=== PATIENT | female | born 1970 | race Caucasian/White ===

== ENCOUNTER 2020-09-30 14:25 | Emergency (ER) | payer MEDICARE, MEDICAID, SELFPAY ==
[2020-09-30 14:27] VITALS: BP 125/89; PULSE 87; RESP 16; TEMP 36.6; O2SAT 96; BMI 21.0
--- NOTE | 2020-09-30 14:41 | CT_ITS ---
STUDY: CT ABDOMEN AND PELVIS WITH CONTRAST REASON FOR EXAM: Female, 49 years old. Abdominal pain -- IV PO Contrast RADIATION DOSAGE (If Supplied By Facility): CTDIvol = ( 9.95 ) mGy, DLP = ( 305.65 ) mGycm TECHNIQUE: Transaxial images were obtained from the dome of the diaphragm to the symphysis pubis with oral contrast. Oral and amp; IV Gastrografin and amp; 100mL Isovue-370 was administered. Sagittal and coronal images were reconstructed. Individualized dose optimization techniques were used for this CT. COMPARISON: Prior abdomen and pelvic CT exam of 11/11/2013 FINDINGS: Dependent bibasilar atelectatic changes, left greater than right. The visualized portions of the heart are within normal limits. Normal liver. There are surgical clips in the gallbladder fossa consistent with a prior cholecystectomy. Normal spleen. Multifocal pancreatic calcifications. Stable mildly dilated pancreatic duct in the head and body. Mild compensatory dilatation of the common bile duct. Ductal findings are stable from prior exam. Pancreatic calcifications have occurred since the previous exam. Normal bilateral adrenal glands. No acute renal findings or changes. Stable small renal cysts. Currently negative for hydronephrosis, renal or ureteral stones. Normal visualized stomach. Mild diffuse proximal small bowel dilatation. Oral contrast is only progressed to proximal small bowel at the time of this exam. Negative for evidence of a high-grade obstruction. Unremarkable ileocolic anastomosis. The remaining colon is unremarkable. There is non-visualization of the appendix. There is diffuse atherosclerotic calcification of the abdominal aorta, without a demonstrated aneurysm. Normal inferior vena cava. Normal retroperitoneum. Distended urinary bladder. Negative for pelvic mass or free fluid of the pelvis. There is a small fatty hernia of the midline anterior abdominal wall occurring 8 cm below the xiphoid with some opacity of the fat external and internal to the abdominal wall that is not changed from prior exam. Normal osseous structures. CT/Abdomen/Pelvis WITH Contrast IMPRESSION: Mildly distended or hypotonic small bowel without evidence of high-grade obstruction. Unremarkable ileocolic anastomosis and remaining distal colon. Negative for evidence of obstruction perforation or other inflammatory bowel changes. No acute renal findings or changes. Negative for hydronephrosis, renal or ureteral stones. Negative for pelvic mass. Distended urinary bladder. Unremarkable liver and spleen status post cholecystectomy. Moderate dilatation of the common bile duct stable from prior exam. Normal size of the pancreas. Prominent pancreatic duct of the pancreatic head and body which is a stable finding from prior exam; however, diffuse globular pancreatic calcifications have occurred since the prior exam of 2013. Small hernia of the midline anterior abdominal wall occurring 8 cm above the xiphoid with chronic fat changes. Findings stable from prior exam. Electronically Signed: Jayne Juan MD at 18:07 EDT , Service support ,
--- NOTE | 2020-09-30 14:43 | ED.DCSUM_ITS ---
- ER Visit Summary Date of Service: 09/30/20 Chief Complaint: Abdominal pain, nausea, vomiting, diarrhea History of Present Illness: The patient is a 49 F who presents with abdominal pain that has been getting progressively worse over the past 2 weeks. Patient states she is also been having some nausea, vomiting, and diarrhea for the past 2 weeks. Patient denies any melena or hematochezia. Patient denies any hematemesis or coffee-ground emesis. Patient states she is unable to keep anything down. Patient states that she has been taking her medication with crackers. Patient thinks that they are staying down. Patient denies any dysuria or hematuria. Patient has a history of Crohn's. Patient is on Imuran for that. Patient states that her primary care physician referred to the emergency department for possible pancreatitis due to the Imuran. Physical Examination: Vital signs are stable. Patient is afebrile. Patient is in no acute distress. Oral mucosa is pink and moist. Neck is supple. Trachea is midline. There is no JVD. Heart was regular rate and rhythm. Lungs are clear and equal bilaterally. Abdomen is soft. Bowel sounds are normal. There is epigastric and left upper quadrant tenderness. There is no rebound or guarding noted. Extremities are intact. There is no calf tenderness or edema. Cranial nerves II through XII are intact. There are no focal motor or sensory deficits noted. Test Results: CBC and comprehensive metabolic profile were obtained and were essentially within normal limits. Lipase was normal. Urinalysis was obtained. There is no evidence of urinary tract infection. CT scan of the abdomen and pel vis was obtained. There is no evidence of bowel obstruction or perforation. There are no acute changes noted. There is no acute intra abdominal process. This was interpreted by the radiologist and reviewed by myself. Emergency Department Course and Treatment: Patient was given IV fluids, Dilaudid, and Zofran here. Patient is feeling better on reevaluation. Patient was instructed to follow-up with her primary care physician in 5 to 7 days. Patient understood and was agreeable with the plan. All questions were answered. Disposition: Discharge home Impression: 1. Abdominal pain This note was generated with [employer] software. It may contain incorrect words, spelling, and punctuation that were not noted in review of the chart prior to signing ED Disposition - Plan for ED Patient: Disposition: Home or Assisted Living Diagnosis: Abdominal pain Instructions: ED Abdominal Pain Unkn Cause Fem Referrals: Doctor,Your [STAFF PHYSICIAN] - 3-5 Days
[2020-09-30] MEDS: HYDROmorphone 0.5 MG/0.5 ML SYRINGE IV ×2 (15:33→16:46)
[2020-09-30] MEDS: Ondansetron 4 MG/2 ML Vial IV (15:33)
[2020-09-30] MEDS: 0.9% Normal Saline 1,000 ML 1000 ML IV (15:37)
[2020-09-30 15:57] LABS: Absolute Neutrophil Count 2.5 X10^3/uL (2.0-7.7); Basophil# 0.06 X10^3/uL; Basophil% 1.3 % (0-1); Eosinophil# 0.21 X10^3/uL; Eosinophils% 4.4 % (0-5); Hematocrit 41.9 % (37-47); Hemoglobin 13.1 g/dL (12.0-15.0); Lymphocyte % 31.7 % (19-41); Mean Corp Hgb Conc 31.3 g/dL (32-36); Mean Corpuscular Hgb 26.5 pg (27.0-32.0); Mean Corpuscular Volume 84.6 fL (81-99); Mean Platelet Vol. 9.3 fl (6.2-12.0); Monocyte# 0.47 X10^3/uL; Monocyte% 9.9 % (0-10); NRBC Flagged by Analyzer 0 % (0-5); Neutrophil # 2.48 X10^3/uL (2.7-7.7); Neutrophil % 52.5 % (47-70); Platelet Count 219 K/mm3 (150-450); RBC Distribution Width CV 15.7 % (11.6-14.6); RBC Distribution Width SD 48.5 fl (35.1-43.9); Red Blood Count 4.95 M/mm3 (4.2-5.4); White Blood Count 4.7 K/mm3 (4.4-11.0)
[2020-09-30 16:07] LABS: AST(SGOT) 13 U/L (15-37); Alanine Aminotransfer ALT/SGPT 14 U/L (13-56); Albumin, Serum 3.4 g/dL (3.2-5.0); Alkaline Phosphatase 210 U/L (45-117); Anion Gap 5 (5-15); BUN 11 mg/dL (7-18); BUN/Creat Ratio 14.7 RATIO (10-20); Calcium,Total 8.6 mg/dL (8.5-10.1); Chloride 103 mmol/L (98-107); Creatinine, Serum 0.75 mg/dL (0.55-1.02); EST Glomerular Filtration Rate 88 mL/min (>60); Est Glom Filt Rate - Afr Amer 107 mL/min (>60); Estimated Creatinine Clearance 76.71 ml/min; Globulin 3.4 g/dL (2.2-4.2); Glucose 105 mg/dL (74-106); Lipase 73 U/L (73-393); Potassium 3.9 mmol/L (3.5-5.1); Protein, Total 6.8 g/dL (6.4-8.2); Sodium Level 138 mmol/L (136-145)
[2020-09-30 16:43] LABS: Bacteria 0 SEEN /hpf (None Seen); Mucous, Urine 0 SEEN /hpf (<or=2+); Red Blood Cells-Urine 0 SEEN /hpf (0-5); Squamous Epithelial Cells - UA 0 SEEN /hpf (5-10); White Blood Cells 0 SEEN /hpf (0-5)
[2020-09-30 16:48] LABS: Color, Urine Yellow (Yellow); Glucose, Dipstick Normal (Normal); Ketone-Dipstick Negative (Negative); Leukocyte Esterase-Dipstick Negative /ul (Negative); Nitrite-Dipstick Negative (Negative); Occult Blood-Urine Negative /ul (Negative); Protein-Dipstick Negative (Negative); Urine Bilirubin Dipstick Negative (Negative); Urine Clarity Clear (Clear); Urine Urobilinogen Normal (Normal); Urine pH 6.5 (5.0 - 8.0)
[2020-09-30 16:50] VITALS: BP 119/77; PULSE 66; RESP 16; O2SAT 100
[2020-09-30 18:17] VITALS: BP 97/70; PULSE 69; RESP 16; O2SAT 96
[2020-09-30 19:20] VITALS: BP 97/60; PULSE 69; RESP 16; TEMP 36.6; O2SAT 96
== END 2020-09-30 19:22 | disposition home or self-care (01) ==
PROVIDERS: Emergency Provider Emergency Medicine
DX: R10.13 Epigastric pain (principal); R10.12 Left upper quadrant pain; R11.2 Nausea with vomiting, unspecified; R19.7 Diarrhea, unspecified; K50.90 Crohn's disease, unspecified, without complications; Z79.899 Other long term (current) drug therapy
CPT/HCPCS: 74177; 80053; 81001; 83690; 85025; 96361; 96374; 96375; 99285; J7030; Q9967; A4216; J2405